=== PATIENT | female | born 1945 | race Caucasian/White ===

== ENCOUNTER 2022-03-28 17:40 | Emergency (ER) | payer MEDICARE, OTHER ==
[2022-03-28] MEDS ORDERED: Ketorolac 30 MG/ML SDV IVPUSH ONE (17:53)
[2022-03-28] MEDS ORDERED: Sodium Chloride 0.9% 1,000 ML IV ONE (17:53)
[2022-03-28 18:28] LABS: ANION GAP 10.9 mmol/L (5-15); CHLORIDE,CL 102 mmol/L (98-107); SODIUM,NA 137 mmol/L (136-145)
[2022-03-28 18:29] LABS: ESTIMATED GFR 55 mL/min (>=60)
[2022-03-28] MEDS ORDERED: HYDROmorphone 1 MG/ML Syringe IVPUSH ONE (19:10)
[2022-03-28 19:48] VITALS: BP 133/63; PULSE 74
[2022-03-28] MEDS ORDERED: Acetaminophen/oxyCODONE 325-5 MG Tab PO PRN (20:08)
[2022-03-28] MEDS ORDERED: Ondansetron 4 MG Tab.DIS PO SCH (20:15)
[2022-03-28] MEDS ORDERED: Ondansetron 4 MG/2 ML SDV IVPUSH ONE (20:15)
[2022-03-28] MEDS: Ondansetron 4 MG/2 ML SDV ONE (20:20)
[2022-03-29] MEDS ORDERED: Iopamidol 755 Mg/ML 75 ML Bottle IVPUSH ONE (08:10)
[2022-03-29] MEDS ORDERED: Sodium Chloride 0.9% 50 ML IV SCH (08:15)
== END 2022-03-28 20:45 | disposition home or self-care (01) ==
LOC: KA.ED 17:40
DX: R10.13 Epigastric pain (principal); R10.11 Right upper quadrant pain; Z88.0 Allergy status to penicillin
CPT/HCPCS: 36415; 74021; 74177; 80053; 81001; 83690; 85025; 86140; 87086; 96361; 96374; 96375; 99284-25; A9270-GY; J1170; J1885; J2405; J7030; Q9967